=== PATIENT | female | born 1945 | race Caucasian/White ===

== ENCOUNTER → 2016-08-10 | Outpatient (CLI) | payer MEDICARE ==
[~2016-08-10] MED LIST: ASPIR-LOW81 MG PO; CALTRATE 600 +1 EAC1 PO; ELIQUIS2.5 MG PO; MULTI FOR HER1 EACH PO; NADOLOL20 MG PO; NADOLOL40 MG PO; PANTOPRAZOLE SO40 MG PO; PERCOCET 10-321 EACH PO; TOPROL XL 50 MG50 MG PO
== END ==
LOC: HEART CORB 10:59
DX: R00.2 Palpitations (principal); R00.1 Bradycardia, unspecified; R06.02 Shortness of breath

== ENCOUNTER → 2016-08-17 | Outpatient (CLI) | payer MEDICARE | LOC: HEART CORB 09:45 | DX: R00.2 Palpitations (principal); R00.1 Bradycardia, unspecified; R06.02 Shortness of breath | CPT/HCPCS: 93306 ==

== ENCOUNTER → 2016-09-09 | Outpatient (CLI) | payer MEDICARE | LOC: KOH-I 12:47 | DX: Z13.820 Encounter for screening for osteoporosis (principal); M81.0 Age-related osteoporosis without current pathological fracture; M80.00XA Age-related osteoporosis with current pathological fracture, unspecified site, initial encounter for fracture; Z82.62 Family history of osteoporosis | CPT/HCPCS: 77080 ==